=== PATIENT | female | born 2000 | race Caucasian/White ===

== ENCOUNTER 2020-05-09 22:39 | Emergency (ER) | payer SELFPAY ==
[~2020-05-09] VITALS: Ht 162.6 cm; Wt 56.7 kg
--- NOTE | 2020-05-09 22:53 | NUR ---
PT AAOX4. BIBSELF C/O HEADACHE X2 DAYS. ALSO C/O SORETHROAT, TRAVELED TO [place] 2 WEEKS AGO. NO ACUTE DISTRESS NOTED. NO FEVER, RR EVEN AND UNLABORED. AWAITING MD FOR EVAL.
[2020-05-09] MEDS ORDERED: IV NS 0.9% 1,000 ML BAG IV ONE (23:00)
[2020-05-09] MEDS ORDERED: SUMATRIPTAN SUCCINATE 6 MG/0.5 ML VIAL SQ ONE ×2 (23:00→23:07)
[2020-05-09] MEDS ORDERED: METOCLOPRAMIDE HCL 10 MG/2 ML VIAL IV ONE (23:00)
[2020-05-09] MEDS ORDERED: METOCLOPRAMIDE HCL 10 MG/2 ML VIAL ONE (23:07)
--- NOTE | 2020-05-09 23:23 | NUR ---
BROUGHT TO CT
--- NOTE | 2020-05-10 00:21 | NUR ---
Patient discharged to home in stable condition. Written and verbal after care instructions given. Patient verbalizes understanding of instruction and RX.
--- NOTE | 2020-05-10 00:21 | NUR ---
IV removed. Catheter intact and site benign. Pressure and 4x4 applied to site. No bleeding noted.
[2020-05-10 00:22] VITALS: BP 122/69
== END 2020-05-10 00:22 | disposition home or self-care (01) ==
LOC: ER 22:39
DX: R51 Headache (principal); R42 Dizziness and giddiness
CPT/HCPCS: 70450; 96361; 96372; 96374; 99285; J2765; J3030; J7030